=== PATIENT | female | born 1980 | race Caucasian/White ===

== ENCOUNTER 2016-06-10 14:14 | Emergency (ER) | payer OTHER ==
[~2016-06-10 14:14] MED LIST: ACETAMINOPHEN325 MG PO; AUGMENTIN875 MG PO; CLINDAMYCIN HC300 MG PO; CLINDAMYCIN HCL75 MG; EXCEDRIN MIGRAINE; FERROUS SULFAT325 M1 PO; METHADONE HCL10 MG PO; NAPROSYN250 MG PO; PERCOCET1 TA1 PO; SMZ-TMP DS1 TAB PO
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
--- NOTE | 2016-06-10 16:00 | ED MAR SUMMARY ---
..... Medication Administration Record [facility] [address] [place], [place] [id number] Patient: DEDRA BARKER Visit ID: [id number] 36y, F Weight: 81.6 kg Height/Length: 66 in BMI: 29 ALLERGIES: Iodine, Erythromycin
--- NOTE | 2016-06-10 16:00 | ED MED RECONCILIATION SUMMARY ---
Patient: DEDRA BARKER Medication Reconciliation Report [facility] VisitID: [id number] [address] [place] [address] 36y, F Registration Date/Time: 06/10/2016 Weight: 81.6 kg Height/Length: 66 in. BMI: 29.0 ALLERGIES: Erythromycin, Iodine The patient's Home Medications are listed below: THE FOLLOWING MEDICATIONS NEED TO BE RECONCILED: Methadone HCl Oral 125mg, daily, recovering heroin addict The source(s) of the original Home Medication information: patient The following Medications were given to the patient in the Emergency Department: None. The following Medications were prescribed to the patient: Clindamycin 300 mg: take 1 capsule orally every 6 hours for 10 days. No refill. -- Radhika Marrero P.A.-C
--- NOTE | 2016-06-10 16:00 | ED DISCHARGE INSTRUCTIONS ---
Patient: DEDRA BARKER General Instructions [facility] VisitID: [id number] [place] [address] 36y, F Registration Date/Time: 06/10/2016 Facial cellulitis INSTRUCTIONS Drink plenty of fluids. (warm packs to area follow up with pcp in 2 days to ensure improvement if you do not have pcp f/u with [facility] or [facility] Address: [address] [place] [address] ). Prescription Medications: Clindamycin 300 mg: take 1 capsule orally every 6 hours for 10 days. No refill. ADDITIONAL INFORMATION Facial Cellulitis You have an infection of the skin known as cellulitis. This usually starts with a scrape, cut or insect bite which becomes infected. It may also occur from an infected oil gland (pimple) or hair follicle. This can be a serious condition and must be watched closely to be sure the infection is not spreading. With antibiotic treatment, the size of the red area will gradually shrink in size until the skin returns to normal. This will take 7-10 days. The red area should never increase in size once the antibiotic medicine has been started. Occasionally, an infection will be resistant to one antibiotic and another one will have to be used. Home Care: 1) Take all of the antibiotic medicine exactly as prescribed until it is gone. Be careful not to miss any doses, especially during the first few days. 2) A cool compress (face cloth soaked in cool water) applied to the face may help with the swelling and pain. 3) You may use acetaminophen (Tylenol) or ibuprofen (Motrin, Advil) to control pain, unless another medicine was prescribed. [ NOTE : If you have chronic liver or kidney disease or ever had a stomach ulcer or GI bleeding, talk with your doctor before using these medicines.] (Aspirin should never be used in anyone under 18 years of age who is ill with a fever. It may cause severe liver damage.) Follow Up with your doctor or this facility as directed. Check the infected area daily for the warning signs listed below. Get Prompt Medical Attention if any of the following occur: -- Increasing area of redness, swelling or pain -- Pus or fluid drainage from the skin or the eye -- Fever of 100.5 F (38 C) oral or 101.5 F (38.6 C) rectal for more than two days on antibiotics -- Eyelid swells shut -- Increasing headache or neck pain -- Unusual drowsiness or confusion -- Convulsion (seizure) You have been given the following additional information: Cellulitis, Facial (Electronically signed by Radhika Marrero P.A.-C 06/10/2016 15:13)
--- NOTE | 2016-06-10 16:00 | ED MED RECONCILIATION SUMMARY ---
Patient: DEDRA BARKER Medication Reconciliation Report [facility] VisitID: [id number] [address] [place] [address] 36y, F Registration Date/Time: 06/10/2016 Weight: 81.6 kg Height/Length: 66 in. BMI: 29.0 ALLERGIES: Erythromycin, Iodine The patient's Home Medications are listed below: THE FOLLOWING MEDICATIONS NEED TO BE RECONCILED: Methadone HCl Oral 125mg, daily, recovering heroin addict The source(s) of the original Home Medication information: patient The following Medications were given to the patient in the Emergency Department: None. The following Medications were prescribed to the patient: Clindamycin 300 mg: take 1 capsule orally every 6 hours for 10 days. No refill. -- Radhika Marrero P.A.-C
--- NOTE | 2016-06-10 16:00 | ED MAR SUMMARY ---
..... Medication Administration Record [facility] [address], [place] [id number] Patient: DEDRA ABRKER Visit ID: [id number] 36y, F Weight: 81.6 kg Height/Length: 66 in BMI: 29 ALLERGIES: Iodine, Erythromycin
--- NOTE | 2016-06-10 16:00 | ED DISCHARGE INSTRUCTIONS ---
Patient: DEDRA BARKER General Instructions [facility] VisitID: [id number] [place] [address] 36y, F Registration Date/Time: 06/10/2016 Facial cellulitis INSTRUCTIONS Drink plenty of fluids. (warm packs to area follow up with pcp in 2 days to ensure improvement if you do not have pcp f/u with [facility] Address: [address] [place] [address] ). Prescription Medications: Clindamycin 300 mg: take 1 capsule orally every 6 hours for 10 days. No refill. ADDITIONAL INFORMATION Facial Cellulitis You have an infection of the skin known as cellulitis. This usually starts with a scrape, cut or insect bite which becomes infected. It may also occur from an infected oil gland (pimple) or hair follicle. This can be a serious condition and must be watched closely to be sure the infection is not spreading. With antibiotic treatment, the size of the red area will gradually shrink in size until the skin returns to normal. This will take 7-10 days. The red area should never increase in size once the antibiotic medicine has been started. Occasionally, an infection will be resistant to one antibiotic and another one will have to be used. Home Care: 1) Take all of the antibiotic medicine exactly as prescribed until it is gone. Be careful not to miss any doses, especially during the first few days. 2) A cool compress (face cloth soaked in cool water) applied to the face may help with the swelling and pain. 3) You may use acetaminophen (Tylenol) or ibuprofen (Motrin, Advil) to control pain, unless another medicine was prescribed. [ NOTE : If you have chronic liver or kidney disease or ever had a stomach ulcer or GI bleeding, talk with your doctor before using these medicines.] (Aspirin should never be used in anyone under 18 years of age who is ill with a fever. It may cause severe liver damage.) Follow Up with your doctor or this facility as directed. Check the infected area daily for the warning signs listed below. Get Prompt Medical Attention if any of the following occur: -- Increasing area of redness, swelling or pain -- Pus or fluid drainage from the skin or the eye -- Fever of 100.5 F (38 C) oral or 101.5 F (38.6 C) rectal for more than two days on antibiotics -- Eyelid swells shut -- Increasing headache or neck pain -- Unusual drowsiness or confusion -- Convulsion (seizure) You have been given the following additional information: Cellulitis, Facial (Electronically signed by Radhika Marrero P.A.-C 06/10/2016 15:13)
== END 2016-06-10 15:51 | disposition home or self-care (01) ==
LOC: ED SRH 14:14
DX: L03.211 Cellulitis of face (principal); F11.20 Opioid dependence, uncomplicated; Z88.1 Allergy status to other antibiotic agents; Z91.041 Radiographic dye allergy status

== ENCOUNTER 2016-06-21 08:25 | Emergency (ER) | payer OTHER ==
--- NOTE | 2016-06-21 09:04 | ED ORDER SUMMARY ---
..... Patient: DEDRA BARKER OrderSheet [facility] VisitID: [id number] [address] [place] [address] 36y, F Registration Date/Time: 06/21/2016 ORDER SHEET Weight: 81.6 kg Allergies: Erythromycin, Iodine GENERAL ORDERS: MEDICATION ORDERS: Prednisone PO 60 mg (NOW) (08:38 06/21/2016 Weston Sargent) (Ack 8:42 Ana R.N.) (8:46 Shiela R.N.) HydrOXYzine PO 50 mg (NOW) (08:38 06/21/2016 Weston Sargent) (Ack 8:42 Ana R.N.) (8:46 Shiela R.N.) IV FLUIDS: ORDER SHEET NOTES: [Electronically signed by Sherri Owen R.N. (11:03 06/21/2016)] [Electronically signed by Corby Santos Dr. (05:48 06/23/2016)] [Electronically locked/signed by Sherri Owen R.N. (11:03 06/21/2016)]
--- NOTE | 2016-06-21 09:04 | ED NURSING NOTES ---
Clinical Report - Nurses [facility] [address] [place] [address] 06/21/2016 8:24 [id number] Triage time 08:28. Acuity: LEVEL 4. Chief Complaint: (facial swelling, red bumps on forehead, itchiness). 08:39 06/21/16. Alert. No acute distress. SEPSIS SCREEN: Sepsis Screen. Negative (no infection suspected/documented). ERICK COMA SCORE: Erick Coma Scale: 15- eyes open spontaneously (4); best verbal response- oriented x 4 (5); best motor response- obeys commands (6). --08:39 Sherri Owen R.N. 08:31 06/21/16. BP: 137/78. HR: 79. RR: 16. O2 saturation: 99%. Temp: 98.4 F. Pain level now: 08/18. --08:39 Sherri Owen R.N. Weight: 81.6 kg. Height/Length: 66 inches Per Patient. BMI: 29. --08:39 Sherri Owen R.N. Medications Methadone HCl Oral 125mg, daily (recovering heroin addict). --08:37 Sherri Owen R.N. Allergies Erythromycin. Iodine. --08:37 Sherri Owen R.N. History Historian: patient. This started last night. ( Patient reports that she went to the salon to dye her hair two days ago. Last night, she noticed redness and swelling near her hairline. She reports that she just finished antibiotics for cellulitis on her face yesterday. She reports the cellulitis healed appropriately.). 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 PAST MEDICAL HX: Immunizations: up-to-date. Last normal menstrual period- "a couple months ago". Denies current . SOCIAL HX: Never smoker. No alcohol use or drug use. FALL RISK ASSESSMENT: Fall risk assessment completed. No fall risk identified. NUTRITIONAL RISK ASSESSMENT: The nutritional risk assessment revealed no deficiencies. FUNCTIONAL ASSESSMENT: Functional assessment: no impairments noted. LEARNING NEEDS ASSESSMENT: The learning needs assessment revealed no barriers. SKIN INTEGRITY ASSESSMENT: Skin integrity risk assessment completed. No skin integrity risk identified. --08:39 Sherri Owen R.N. PROBLEMS: Substance Abuse. Abscess. Gastroenteritis. Hepatitis. Facial Cellulitis. Lifestyle / Substance Problems. --08:38 Sherri Owen R.N. ADDITIONAL SURGERIES: Facial abscess surgery. Knee Surgery. --08:38 Sherri Owen R.N. Interventions ID band on patient. To treatment room. --08:39 Sherri Owen R.N. PHYSICAL ASSESSMENT 08:41 06/21/16. Ambulatory to room. GENERAL / NEURO / PSYCH: Alert. Oriented X 4. Appears in no acute distress. HEENT: ( facial swelling in R rastafarian area). Mucous membranes are pink. RESPIRATORY: Respirations not labored. Chest nontender. CVS: Capillary refill less than 2 seconds. Pulses within normal limits. SKIN: Skin is warm and dry. Erythematous, petechial skin rash (at hair line and throughout scalp). Normal skin turgor. --08:41 Sherri Owen R.N. NURSING PROGRESS NOTES 08:41 06/21/2016 Prednisone PO Tablets 60 mg given. Allergies verified and confirmed 5 rights. --08:46 Sherri Owen R.N. 08:41 06/21/2016 Hydroxyzine (HydrOXYzine HCl) PO Tablets 50 mg given. Allergies verified, confirmed 5 rights and sedative warning given to the patient and patient's family. --08:46 Sherri Owen R.N. 08:41 06/21/16. Patient gowned. Two patient identifiers checked. Call light placed in reach. Side rails up x 1. Bed placed in lowest position. Brakes of bed on. --08:41 Sherri Owen R.N. DISPOSITION / DISCHARGE No learning barriers present. Discharge instructions provided and reviewed with the patient and family. Reviewed warnings. Reviewed medication(s). Treatments reviewed. Patient and family verbalized understanding. Written instructions provided in Cameroonian. The patient was discharged by the physician. She was discharged home and accompanied by family. She left the Emergency Department ambulatory and via private vehicle. Family member driving. --09:11 Sherri Owen R.N. 08:31 06/21/16. BP: 137/78. HR: 79. RR: 16. O2 saturation: 99%. Temp: 98.4 F. Pain level now: 08/18. --09:11 Sherri Owen R.N. Locked/Released at 06/21/2016 11:03 by Sherri Owen R.N.
--- NOTE | 2016-06-21 09:04 | ED CLINICAL REPORT ---
Clinical Report - Physicians/Mid Levels [facility] [address] [place] [address] 06/21/2016 8:24 Patient: DEDRA BARKER Time Seen: 0831; initial patient contact. Arrived- By private vehicle. Historian- patient. HISTORY OF PRESENT ILLNESS Chief Complaint: ALLERGIC REACTION. The patient has had a skin rash and swelling. This started past few days and is still present (unchanged). It was abrupt in onset and has been constant but is not gone now. A cause has been identified (new hair dye). No recent insect bite or food exposure. Was not recently exposed to poison param. The patient received treatment prior to arrival (patient has tried to wash out the dye several times). (no shortness of breath or swelling of the throat. appears to be isolated to the scalp area.). Similar symptoms previously: None. Recent medical care: Not recently seen/assessed. REVIEW OF SYSTEMS No sore throat, fever, chest pain, abdominal pain or vomiting. All systems otherwise negative, except as recorded above. PAST HISTORY See nurses notes. Medications: Methadone HCl Oral 125mg, daily (recovering heroin addict). Allergies: Erythromycin. Iodine. SOCIAL HISTORY Never smoker. No alcohol use or drug use. No recent travel. Is a local resident. ADDITIONAL NOTES The nursing notes have been reviewed. PHYSICAL EXAM Vital Signs: 06/21/2016 08:31 BP: 137/78. HR: 79. RR: 16. O2 saturation: 99%. Temp: 98.4 F. Pain level now: 7/10. Oxygen saturation normal. Appearance: Alert. Oriented X3. No acute distress. Eyes: Pupils equal, round and reactive to light. (swelling to the head and scalp with mild hyperemia isolated to the scalp area. no crepitus. no michael abnormalities. no fluctuance or area of induration. no masses.). ENT: Ears normal. Nose normal. Pharynx normal. Voice normal. No muffled or hoarse voice or drooling. Neck: Neck supple. No lymphadenopathy or meningeal signs. (no stridor.). CVS: Normal heart rate and rhythm. Heart sounds normal. Respiratory: No respiratory distress. No respiratory distress. Breath sounds normal. No wheezes, rales or rhonchi. Abdomen: Nontender. No organomegaly. Extremities: Normal external inspection. Extremities nontender. Neuro: Oriented X 3. No motor deficit. No sensory deficit. PROGRESS AND PROCEDURES Course of Care: The patient is a pleasant 36 -year-old female presented for evaluation of allergic reaction. Appears to be a reaction to the hair dye. no signs of airway compromise. Symptoms have been ongoing for the past few days. Symptoms will be treated here in the emergency department with allergy medication. Because of the amount of swelling located to the scalp, feel the benefits of systemic steroid treatment outweighs the risks. Discussed the patient these medications and possible side effects. Patient is agreeable to the treatment and plan. Patient was monitored here in the emergency department. No further worsening of her symptoms. Patient states feeling slightly improved. Because of the several day history of the allergic-type reaction, do not feel patient will have any significant worsening. Patient was given the option of further monitoring the emergency department versus home care. Patient states that she lives nearby and will return immediately for any worsening. Patient requesting to pursue further treatment as an outpatient. At this time, again because of the time course of the illness, feel that this is a reasonable option. Patient will be discharged and instructed to follow-up with her physician. Discussed with patient anaphylaxis and reasons to return to the emergency department. Educated patient on allergen avoidance. Discussed the patient workup here in emergency department including diagnosis, home care, follow-up, and return precautions. All questions have been answered. The patient expressed understanding of these instructions and was agreeable to them. Disposition: Discharged. Condition: good. CLINICAL IMPRESSION 06/21/2016 08:31 BP: 137/78. HR: 79. RR: 16. O2 saturation: 99%. Temp: 98.4 F. Pain level now: 7/10. Blood pressure normal. Oxygen saturation normal. Severe allergic contact dermatitis from cosmetics (acute of scalp). INSTRUCTIONS (avoid use of the hair care product you were recently exposed to.). Warnings: GENERAL WARNINGS: Return or contact your physician immediately if your condition worsens or changes unexpectedly, if not improving as expected, or if other problems arise. Specifically return if pain, vomiting, bleeding, breathing difficulty or fever. weakness, light headed, swelling of the throat, or other concerns. Your Current Medications: CONTINUE TAKING THE FOLLOWING MEDICATIONS: Methadone HCl Oral : 125mg daily, recovering heroin addict. Prescription Medications: Atarax 50 mg: take 1 orally every 8 hours as needed for itching. Dispense thirty (30). No refill. Substitution is permissible. Prednisone every day for 5 days. Dispense sufficient quantity. No refills. (60 mg PO) [place] 5 mg / 325 mg tablets: take 1 orally every 6 hours as needed for pain. Dispense ten (10). No refill. Substitution is permissible. Follow-up: Return to the emergency department as needed. Follow up with your doctor in three days. Reason for referral: recheck today's concerns. Summary of care provided to patient via paper. Screening today revealed the patient's blood pressure to be in the normal range. The patient should follow up with a primary care provider for blood pressure management. Understanding of the discharge instructions verbalized by patient. (Electronically signed by Corby Santos Dr. 06/23/2016 5:48)
--- NOTE | 2016-06-21 09:04 | ED NURSING NOTES ---
Clinical Report - Nurses [facility] [address] [place] [address] 06/21/2016 8:24 [id number] TRI[facility] Triage time 08:28. Acuity: LEVEL 4. Chief Complaint: (facial swelling, red bumps on forehead, itchiness). 08:39 06/21/16. Alert. No acute distress. SEPSIS SCREEN: Sepsis Screen. Negative (no infection suspected/documented). ERICK COMA SCORE: Erick Coma Scale: 15- eyes open spontaneously (4); best verbal response- oriented x 4 (5); best motor response- obeys commands (6). --08:39 Sherri Owen R.N. 08:31 06/21/16. BP: 137/78. HR: 79. RR: 16. O2 saturation: 99%. Temp: 98.4 F. Pain level now: 08/18. --08:39 Sherri Owen R.N. Weight: 81.6 kg. Height/Length: 66 inches Per Patient. BMI: 29. --08:39 Sherri Owen R.N. Medications Methadone HCl Oral 125mg, daily (recovering heroin addict). --08:37 Sherri Owen R.N. Allergies Erythromycin. Iodine. --08:37 Sherri Owen R.N. History Historian: patient. This started last night. ( Patient reports that she went to the salon to dye her hair two days ago. Last night, she noticed redness and swelling near her hairline. She reports that she just finished antibiotics for cellulitis on her face yesterday. She reports the cellulitis healed appropriately.). 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 PAST MEDICAL HX: Immunizations: up-to-date. Last normal menstrual period- "a couple months ago". Denies current . SOCIAL HX: Never smoker. No alcohol use or drug use. FALL RISK ASSESSMENT: Fall risk assessment completed. No fall risk identified. NUTRITIONAL RISK ASSESSMENT: The nutritional risk assessment revealed no deficiencies. FUNCTIONAL ASSESSMENT: Functional assessment: no impairments noted. LEARNING NEEDS ASSESSMENT: The learning needs assessment revealed no barriers. SKIN INTEGRITY ASSESSMENT: Skin integrity risk assessment completed. No skin integrity risk identified. --08:39 Sherri Owen R.N. PROBLEMS: Substance Abuse. Abscess. Gastroenteritis. Hepatitis. Facial Cellulitis. Lifestyle / Substance Problems. --08:38 Sherri Owen R.N. ADDITIONAL SURGERIES: Facial abscess surgery. Knee Surgery. --08:38 Sherri Owen R.N. Interventions ID band on patient. To treatment room. --08:39 Sherri Owen R.N. PHYSICAL ASSESSMENT 08:41 06/21/16. Ambulatory to room. GENERAL / NEURO / PSYCH: Alert. Oriented X 4. Appears in no acute distress. HEENT: ( facial swelling in R denominational area). Mucous membranes are pink. RESPIRATORY: Respirations not labored. Chest nontender. CVS: Capillary refill less than 2 seconds. Pulses within normal limits. SKIN: Skin is warm and dry. Erythematous, petechial skin rash (at hair line and throughout scalp). Normal skin turgor. --08:41 Sherri Owen R.N. NURSING PROGRESS NOTES 08:41 06/21/2016 Prednisone PO Tablets 60 mg given. Allergies verified and confirmed 5 rights. --08:46 Sherri Owen R.N. 08:41 06/21/2016 Hydroxyzine (HydrOXYzine HCl) PO Tablets 50 mg given. Allergies verified, confirmed 5 rights and sedative warning given to the patient and patient's family. --08:46 Sherri Owen R.N. 08:41 06/21/16. Patient gowned. Two patient identifiers checked. Call light placed in reach. Side rails up x 1. Bed placed in lowest position. Brakes of bed on. --08:41 Sherri Owen R.N. DISPOSITION / DISCHARGE No learning barriers present. Discharge instructions provided and reviewed with the patient and family. Reviewed warnings. Reviewed medication(s). Treatments reviewed. Patient and family verbalized understanding. Written instructions provided in Georgian. The patient was discharged by the physician. She was discharged home and accompanied by family. She left the Emergency Department ambulatory and via private vehicle. Family member driving. --09:11 Sherri Owen R.N. 08:31 06/21/16. BP: 137/78. HR: 79. RR: 16. O2 saturation: 99%. Temp: 98.4 F. Pain level now: 08/18. --09:11 Sherri Owen R.N. Locked/Released at 06/21/2016 11:03 by Sherri Owen R.N.
--- NOTE | 2016-06-21 09:04 | ED ORDER SUMMARY ---
..... Patient: DEDRA BARKER OrderSheet [facility] VisitID: [id number] [address] [place] [address] 36y, F Registration Date/Time: 06/21/2016 ORDER SHEET Weight: 81.6 kg Allergies: Erythromycin, Iodine GENERAL ORDERS: MEDICATION ORDERS: Prednisone PO 60 mg (NOW) (08:38 06/21/2016 Weston Sargent) (Ack 8:42 Ana R.N.) (8:46 Shiela R.N.) HydrOXYzine PO 50 mg (NOW) (08:38 06/21/2016 Weston Sargent) (Ack 8:42 Ana R.N.) (8:46 Shiela R.N.) IV FLUIDS: ORDER SHEET NOTES: [Electronically signed by Sherri Owen R.N. (11:03 06/21/2016)] [Electronically signed by Corby Santos Dr. (05:48 06/23/2016)] [Electronically locked/signed by Sherri Owen R.N. (11:03 06/21/2016)]
--- NOTE | 2016-06-23 05:48 | ED DISCHARGE INSTRUCTIONS ---
Patient: DEDRA BARKER General Instructions [facility] VisitID: [id number] [place] [address] 36y, F Registration Date/Time: 06/21/2016 06/21/2016 08:31 BP: 137/78. HR: 79. RR: 16. O2 saturation: 99%. Temp: 98.4 F. Pain level now: 7/10. Blood pressure normal. Oxygen saturation normal. Severe allergic contact dermatitis from cosmetics (acute of scalp). INSTRUCTIONS (avoid use of the hair care product you were recently exposed to.). Warnings: GENERAL WARNINGS: Return or contact your physician immediately if your condition worsens or changes unexpectedly, if not improving as expected, or if other problems arise. Specifically return if pain, vomiting, bleeding, breathing difficulty or fever. weakness, light headed, swelling of the throat, or other concerns. Your Current Medications: CONTINUE TAKING THE FOLLOWING MEDICATIONS: Methadone HCl Oral : 125mg daily, recovering heroin addict. Prescription Medications: Atarax 50 mg: take 1 orally every 8 hours as needed for itching. Dispense thirty (30). No refill. Substitution is permissible. Prednisone every day for 5 days. Dispense sufficient quantity. No refills. (60 mg PO) [place] 5 mg / 325 mg tablets: take 1 orally every 6 hours as needed for pain. Dispense ten (10). No refill. Substitution is permissible. Follow-up: Return to the emergency department as needed. Follow up with your doctor in three days. Reason for referral: recheck today's concerns. Summary of care provided to patient via paper. Screening today revealed the patient's blood pressure to be in the normal range. The patient should follow up with a primary care provider for blood pressure management. Understanding of the discharge instructions verbalized by patient. ADDITIONAL INFORMATION Dermatitis (Non-Specific) Dermatitis is an inflammation of the skin. The exact cause of your rash is not certain. However, this rash does not appear to be an infection or contagious illness. Taking care of the rash at home should help relieve your symptoms. Home Care: Keep the areas of rash clean by washing it daily. This also helps to keep the skin moist. Use a neutral pH soap such as Dove or Lever 2000. Apply a moisturizing lotion after bathing to prevent dry skin. Avoid skin irritants (wool or silk clothing, grease, oils, some medicines, harsh soaps, and detergents). Wear absorbent, soft fabrics next to the skin rather than rough or scratchy materials. Unless another medicine was prescribed, you may use Hydrocortisone cream (which you can get without a prescription) to reduce the inflammation. Follow Up: Make an appointment with your doctor in the next 1 to 2 weeks if your symptoms do not improve with the above measures. Get Prompt Medical Attention if any of the following occur: Increasing area of redness or pain in the skin Yellow crusts or drainage from the rash Joint pain New rash that appears in other areas of the body Fever of 100.4F (38C) or higher, or as directed by your healthcare provider Hydroxyzine Pamoate Oral capsule What is this medicine? HYDROXYZINE (tiana DROX i zeen) is an antihistamine. This medicine is used to treat allergy symptoms. It is also used to treat anxiety and tension. This medicine can be used with other medicines to induce sleep before surgery. How should I use this medicine? Take this medicine by mouth with a full glass of water. Follow the directions on the prescription label. You may take this medicine with food or on an empty stomach. Take your medicine at regular intervals. Do not take your medicine more often than directed. Talk to your overhead line worker regarding the use of this medicine in children. Special care may be needed. While this drug may be prescribed for children as young as 6 years of age for selected conditions, precautions do apply. Patients over 65 years old may have a stronger reaction and need a smaller dose. What side effects may I notice from receiving this medicine? Side effects that you should report to your doctor or health medicare contact specialist as soon as possible: fast or irregular heartbeat difficulty passing urine seizures slurred speech or confusion tremor Side effects that usually do not require medical attention (report to your doctor or health medicare contact specialist if they continue or are bothersome): constipation drowsiness fatigue headache stomach upset What may interact with this medicine? alcohol barbiturate medicines for sleep or seizures medicines for colds, allergies medicines for depression, anxiety, or emotional disturbances medicines for pain medicines for sleep muscle relaxants What if I miss a dose? If you miss a dose, take it as soon as you can. If it is almost time for your next dose, take only that dose. Do not take double or extra doses. Where should I keep my medicine? Keep out of the reach of children. Store at room temperature between 15 and 30 degrees C (59 and 86 degrees F). Keep container tightly closed. Throw away any unused medicine after the expiration date. What should I tell my health care provider before I take this medicine? They need to know if you have any of these conditions: any chronic illness difficulty passing urine glaucoma heart disease kidney disease liver disease lung disease an unusual or allergic reaction to hydroxyzine, cetirizine, other medicines, foods, dyes, or preservatives or trying to get breast-feeding What should I watch for while using this medicine? Tell your doctor or health medicare contact specialist if your symptoms do not improve. You may get drowsy or dizzy. Do not drive, use machinery, or do anything that needs mental alertness until you know how this medicine affects you. Do not stand or sit up quickly, especially if you are an older patient. This reduces the risk of dizzy or fainting spells. Alcohol may interfere with the effect of this medicine. Avoid alcoholic drinks. Your mouth may get dry. Chewing sugarless gum or sucking hard candy, and drinking plenty of water may help. Contact your doctor if the problem does not go away or is severe. This medicine may cause dry eyes and blurred vision. If you wear contact lenses you may feel some discomfort. Lubricating drops may help. See your eye doctor if the problem does not go away or is severe. If you are receiving skin tests for allergies, tell your doctor you are using this medicine. Prednisone Oral tablet What is this medicine? PREDNISONE (PRED ni sone) is a corticosteroid. It is commonly used to treat inflammation of the skin, joints, lungs, and other organs. Common conditions treated include asthma, allergies, and arthritis. It is also used for other conditions, such as blood disorders and diseases of the adrenal glands. How should I use this medicine? Take this medicine by mouth with a glass of water. Follow the directions on the prescription label. Take this medicine with food. If you are taking this medicine once a day, take it in the morning. Do not take more medicine than you are told to take. Do not suddenly stop taking your medicine because you may develop a severe reaction. Your doctor will tell you how much medicine to take. If your doctor wants you to stop the medicine, the dose may be slowly lowered over time to avoid any side effects. Talk to your overhead line worker regarding the use of this medicine in children. Special care may be needed. What side effects may I notice from receiving this medicine? Side effects that you should report to your doctor or health medicare contact specialist as soon as possible: allergic reactions like skin rash, itching or hives, swelling of the face, lips, or tongue changes in emotions or moods changes in vision depressed mood eye pain fever or chills, cough, sore throat, pain or difficulty passing urine increased thirst swelling of ankles, feet Side effects that usually do not require medical attention (report to your doctor or health medicare contact specialist if they continue or are bothersome): confusion, excitement, restlessness headache nausea, vomiting skin problems, acne, thin and shiny skin trouble sleeping weight gain What may interact with this medicine? Do not take this medicine with any of the following medications: metyrapone mifepristone This medicine may also interact with the following medications: aminoglutethimide amphotericin B aspirin and aspirin-like medicines barbiturates certain medicines for diabetes, like glipizide or glyburide cholestyramine cholinesterase inhibitors cyclosporine digoxin diuretics ephedrine female hormones, like estrogens and control pills isoniazid ketoconazole NSAIDS, medicines for pain and inflammation, like ibuprofen or naproxen phenytoin rifampin toxoids vaccines warfarin What if I miss a dose? If you miss a dose, take it as soon as you can. If it is almost time for your next dose, talk to your doctor or health medicare contact specialist. You may need to miss a dose or take an extra dose. Do not take double or extra doses without advice. Where should I keep my medicine? Keep out of the reach of children. Store at room temperature between 15 and 30 degrees C (59 and 86 degrees F). Protect from light. Keep container tightly closed. Throw away any unused medicine after the expiration date. What should I tell my health care provider before I take this medicine? They need to know if you have any of these conditions: Jose's syndrome diabetes glaucoma heart disease high blood pressure infection (especially a virus infection such as chickenpox, cold sores, or herpes) kidney disease liver disease mental illness myasthenia gravis osteoporosis seizures stomach or intestine problems thyroid disease an unusual or allergic reaction to lactose, prednisone, other medicines, foods, dyes, or preservatives or trying to get breast-feeding What should I watch for while using this medicine? Visit your doctor or health medicare contact specialist for regular checks on your progress. If you are taking this medicine over a prolonged period, carry an identification card with your name and address, the type and dose of your medicine, and your doctor's name and address. This medicine may increase your risk of getting an infection. Tell your doctor or health medicare contact specialist if you are around anyone with measles or chickenpox, or if you develop sores or blisters that do not heal properly. If you are going to have surgery, tell your doctor or health medicare contact specialist that you have taken this medicine within the last twelve months. Ask your doctor or health medicare contact specialist about your diet. You may need to lower the amount of salt you eat. This medicine may affect blood sugar levels. If you have diabetes, check with your doctor or health medicare contact specialist before you change your diet or the dose of your diabetic medicine. Hydrocodone Bitartrate, Acetaminophen Oral tablet What is this medicine? ACETAMINOPHEN; HYDROCODONE (a set a FAWN justin fen; tiana droe KOE done) is a pain reliever. It is used to treat mild to moderate pain. How should I use this medicine? Take this medicine by mouth. Swallow it with a full glass of water. Follow the directions on the prescription label. If the medicine upsets your stomach, take the medicine with food or milk. Do not take more than you are told to take. Talk to your overhead line worker regarding the use of this medicine in children. This medicine is not approved for use in children. What side effects may I notice from receiving this medicine? Side effects that you should report to your doctor or health medicare contact specialist as soon as possible: allergic reactions like skin rash, itching or hives, swelling of the face, lips, or tongue breathing problems confusion feeling faint or lightheaded, falls stomach pain yellowing of the eyes or skin Side effects that usually do not require medical attention (report to your doctor or health medicare contact specialist if they continue or are bothersome): nausea, vomiting stomach upset What may interact with this medicine? alcohol antihistamines isoniazid medicines for depression, anxiety, or psychotic disturbances medicines for sleep muscle relaxants naltrexone narcotic medicines (opiates) for pain phenobarbital ritonavir tramadol What if I miss a dose? If you miss a dose, take it as soon as you can. If it is almost time for your next dose, take only that dose. Do not take double or extra doses. Where should I keep my medicine? Keep out of the reach of children. This medicine can be abused. Keep your medicine in a safe place to protect it from theft. Do not share this medicine with anyone. Selling or giving away this medicine is dangerous and against the law. Store at room temperature between 15 and 30 degrees C (59 and 86 degrees F). Protect from light. Keep container tightly closed. Throw away any unused medicine after the expiration date. Discard unused medicine and used packaging carefully. Pets and children can be harmed if they find used or lost packages. What should I tell my health care provider before I take this medicine? They need to know if you have any of these conditions: brain tumor Crohn's disease, inflammatory bowel disease, or ulcerative colitis drink more than 3 alcohol-containing drinks per day drug abuse or addiction head injury heart or circulation problems kidney disease or problems going to the bathroom liver disease lung disease, asthma, or breathing problems an unusual or allergic reaction to acetaminophen, hydrocodone, other opioid analgesics, other medicines, foods, dyes, or preservatives or trying to get breast-feeding What should I watch for while using this medicine? Tell your doctor or health medicare contact specialist if your pain does not go away, if it gets worse, or if you have new or a different type of pain. You may develop tolerance to the medicine. Tolerance means that you will need a higher dose of the medicine for pain relief. Tolerance is normal and is expected if you take the medicine for a long time. Do not suddenly stop taking your medicine because you may develop a severe reaction. Your body becomes used to the medicine. This does NOT mean you are addicted. Addiction is a behavior related to getting and using a drug for a non-medical reason. If you have pain, you have a medical reason to take pain medicine. Your doctor will tell you how much medicine to take. If your doctor wants you to stop the medicine, the dose will be slowly lowered over time to avoid any side effects. You may get drowsy or dizzy when you first start taking the medicine or change doses. Do not drive, use machinery, or do anything that may be dangerous until you know how the medicine affects you. Stand or sit up slowly. There are different types of narcotic medicines (opiates) for pain. If you take more than one type at the same time, you may have more side effects. Give your health care provider a list of all medicines you use. Your doctor will tell you how much medicine to take. Do not take more medicine than directed. Call emergency for help if you have problems breathing. The medicine will cause constipation. Try to have a bowel movement at least every 2 to 3 days. If you do not have a bowel movement for 3 days, call your doctor or health medicare contact specialist. Too much acetaminophen can be very dangerous. Do not take Tylenol (acetaminophen) or medicines that contain acetaminophen with this medicine. Many non-prescription medicines contain acetaminophen. Always read the labels carefully. You have been given the following additional information: Dermatitis, Non-Specific Hydroxyzine Pamoate Oral capsule Prednisone Oral tablet Hydrocodone Bitartrate, Acetaminophen Oral tablet (Electronically signed by Corby Santos Dr. 06/23/2016 5:48)
--- NOTE | 2016-06-23 05:48 | ED DISCHARGE INSTRUCTIONS ---
Patient: DEDRA BARKER General Instructions [facility] VisitID: [id number] [place] [address] 36y, F Registration Date/Time: 06/21/2016 06/21/2016 08:31 BP: 137/78. HR: 79. RR: 16. O2 saturation: 99%. Temp: 98.4 F. Pain level now: 7/10. Blood pressure normal. Oxygen saturation normal. Severe allergic contact dermatitis from cosmetics (acute of scalp). INSTRUCTIONS (avoid use of the hair care product you were recently exposed to.). Warnings: GENERAL WARNINGS: Return or contact your physician immediately if your condition worsens or changes unexpectedly, if not improving as expected, or if other problems arise. Specifically return if pain, vomiting, bleeding, breathing difficulty or fever. weakness, light headed, swelling of the throat, or other concerns. Your Current Medications: CONTINUE TAKING THE FOLLOWING MEDICATIONS: Methadone HCl Oral : 125mg daily, recovering heroin addict. Prescription Medications: Atarax 50 mg: take 1 orally every 8 hours as needed for itching. Dispense thirty (30). No refill. Substitution is permissible. Prednisone every day for 5 days. Dispense sufficient quantity. No refills. (60 mg PO) [place] 5 mg / 325 mg tablets: take 1 orally every 6 hours as needed for pain. Dispense ten (10). No refill. Substitution is permissible. Follow-up: Return to the emergency department as needed. Follow up with your doctor in three days. Reason for referral: recheck today's concerns. Summary of care provided to patient via paper. Screening today revealed the patient's blood pressure to be in the normal range. The patient should follow up with a primary care provider for blood pressure management. Understanding of the discharge instructions verbalized by patient. ADDITIONAL INFORMATION Dermatitis (Non-Specific) Dermatitis is an inflammation of the skin. The exact cause of your rash is not certain. However, this rash does not appear to be an infection or contagious illness. Taking care of the rash at home should help relieve your symptoms. Home Care: Keep the areas of rash clean by washing it daily. This also helps to keep the skin moist. Use a neutral pH soap such as Dove or Lever 2000. Apply a moisturizing lotion after bathing to prevent dry skin. Avoid skin irritants (wool or silk clothing, grease, oils, some medicines, harsh soaps, and detergents). Wear absorbent, soft fabrics next to the skin rather than rough or scratchy materials. Unless another medicine was prescribed, you may use Hydrocortisone cream (which you can get without a prescription) to reduce the inflammation. Follow Up: Make an appointment with your doctor in the next 1 to 2 weeks if your symptoms do not improve with the above measures. Get Prompt Medical Attention if any of the following occur: Increasing area of redness or pain in the skin Yellow crusts or drainage from the rash Joint pain New rash that appears in other areas of the body Fever of 100.4F (38C) or higher, or as directed by your healthcare provider Hydroxyzine Pamoate Oral capsule What is this medicine? HYDROXYZINE (tiana DROX i zeen) is an antihistamine. This medicine is used to treat allergy symptoms. It is also used to treat anxiety and tension. This medicine can be used with other medicines to induce sleep before surgery. How should I use this medicine? Take this medicine by mouth with a full glass of water. Follow the directions on the prescription label. You may take this medicine with food or on an empty stomach. Take your medicine at regular intervals. Do not take your medicine more often than directed. Talk to your frontend engineer regarding the use of this medicine in children. Special care may be needed. While this drug may be prescribed for children as young as 6 years of age for selected conditions, precautions do apply. Patients over 65 years old may have a stronger reaction and need a smaller dose. What side effects may I notice from receiving this medicine? Side effects that you should report to your doctor or health prompt care rn as soon as possible: fast or irregular heartbeat difficulty passing urine seizures slurred speech or confusion tremor Side effects that usually do not require medical attention (report to your doctor or health prompt care rn if they continue or are bothersome): constipation drowsiness fatigue headache stomach upset What may interact with this medicine? alcohol barbiturate medicines for sleep or seizures medicines for colds, allergies medicines for depression, anxiety, or emotional disturbances medicines for pain medicines for sleep muscle relaxants What if I miss a dose? If you miss a dose, take it as soon as you can. If it is almost time for your next dose, take only that dose. Do not take double or extra doses. Where should I keep my medicine? Keep out of the reach of children. Store at room temperature between 15 and 30 degrees C (59 and 86 degrees F). Keep container tightly closed. Throw away any unused medicine after the expiration date. What should I tell my health care provider before I take this medicine? They need to know if you have any of these conditions: any chronic illness difficulty passing urine glaucoma heart disease kidney disease liver disease lung disease an unusual or allergic reaction to hydroxyzine, cetirizine, other medicines, foods, dyes, or preservatives or trying to get breast-feeding What should I watch for while using this medicine? Tell your doctor or health prompt care rn if your symptoms do not improve. You may get drowsy or dizzy. Do not drive, use machinery, or do anything that needs mental alertness until you know how this medicine affects you. Do not stand or sit up quickly, especially if you are an older patient. This reduces the risk of dizzy or fainting spells. Alcohol may interfere with the effect of this medicine. Avoid alcoholic drinks. Your mouth may get dry. Chewing sugarless gum or sucking hard candy, and drinking plenty of water may help. Contact your doctor if the problem does not go away or is severe. This medicine may cause dry eyes and blurred vision. If you wear contact lenses you may feel some discomfort. Lubricating drops may help. See your eye doctor if the problem does not go away or is severe. If you are receiving skin tests for allergies, tell your doctor you are using this medicine. Prednisone Oral tablet What is this medicine? PREDNISONE (PRED ni sone) is a corticosteroid. It is commonly used to treat inflammation of the skin, joints, lungs, and other organs. Common conditions treated include asthma, allergies, and arthritis. It is also used for other conditions, such as blood disorders and diseases of the adrenal glands. How should I use this medicine? Take this medicine by mouth with a glass of water. Follow the directions on the prescription label. Take this medicine with food. If you are taking this medicine once a day, take it in the morning. Do not take more medicine than you are told to take. Do not suddenly stop taking your medicine because you may develop a severe reaction. Your doctor will tell you how much medicine to take. If your doctor wants you to stop the medicine, the dose may be slowly lowered over time to avoid any side effects. Talk to your frontend engineer regarding the use of this medicine in children. Special care may be needed. What side effects may I notice from receiving this medicine? Side effects that you should report to your doctor or health prompt care rn as soon as possible: allergic reactions like skin rash, itching or hives, swelling of the face, lips, or tongue changes in emotions or moods changes in vision depressed mood eye pain fever or chills, cough, sore throat, pain or difficulty passing urine increased thirst swelling of ankles, feet Side effects that usually do not require medical attention (report to your doctor or health prompt care rn if they continue or are bothersome): confusion, excitement, restlessness headache nausea, vomiting skin problems, acne, thin and shiny skin trouble sleeping weight gain What may interact with this medicine? Do not take this medicine with any of the following medications: metyrapone mifepristone This medicine may also interact with the following medications: aminoglutethimide amphotericin B aspirin and aspirin-like medicines barbiturates certain medicines for diabetes, like glipizide or glyburide cholestyramine cholinesterase inhibitors cyclosporine digoxin diuretics ephedrine female hormones, like estrogens and control pills isoniazid ketoconazole NSAIDS, medicines for pain and inflammation, like ibuprofen or naproxen phenytoin rifampin toxoids vaccines warfarin What if I miss a dose? If you miss a dose, take it as soon as you can. If it is almost time for your next dose, talk to your doctor or health prompt care rn. You may need to miss a dose or take an extra dose. Do not take double or extra doses without advice. Where should I keep my medicine? Keep out of the reach of children. Store at room temperature between 15 and 30 degrees C (59 and 86 degrees F). Protect from light. Keep container tightly closed. Throw away any unused medicine after the expiration date. What should I tell my health care provider before I take this medicine? They need to know if you have any of these conditions: Jose's syndrome diabetes glaucoma heart disease high blood pressure infection (especially a virus infection such as chickenpox, cold sores, or herpes) kidney disease liver disease mental illness myasthenia gravis osteoporosis seizures stomach or intestine problems thyroid disease an unusual or allergic reaction to lactose, prednisone, other medicines, foods, dyes, or preservatives or trying to get breast-feeding What should I watch for while using this medicine? Visit your doctor or health prompt care rn for regular checks on your progress. If you are taking this medicine over a prolonged period, carry an identification card with your name and address, the type and dose of your medicine, and your doctor's name and address. This medicine may increase your risk of getting an infection. Tell your doctor or health prompt care rn if you are around anyone with measles or chickenpox, or if you develop sores or blisters that do not heal properly. If you are going to have surgery, tell your doctor or health prompt care rn that you have taken this medicine within the last twelve months. Ask your doctor or health prompt care rn about your diet. You may need to lower the amount of salt you eat. This medicine may affect blood sugar levels. If you have diabetes, check with your doctor or health prompt care rn before you change your diet or the dose of your diabetic medicine. Hydrocodone Bitartrate, Acetaminophen Oral tablet What is this medicine? ACETAMINOPHEN; HYDROCODONE (a set a FAWN justin fen; tiana droe KOE done) is a pain reliever. It is used to treat mild to moderate pain. How should I use this medicine? Take this medicine by mouth. Swallow it with a full glass of water. Follow the directions on the prescription label. If the medicine upsets your stomach, take the medicine with food or milk. Do not take more than you are told to take. Talk to your frontend engineer regarding the use of this medicine in children. This medicine is not approved for use in children. What side effects may I notice from receiving this medicine? Side effects that you should report to your doctor or health prompt care rn as soon as possible: allergic reactions like skin rash, itching or hives, swelling of the face, lips, or tongue breathing problems confusion feeling faint or lightheaded, falls stomach pain yellowing of the eyes or skin Side effects that usually do not require medical attention (report to your doctor or health prompt care rn if they continue or are bothersome): nausea, vomiting stomach upset What may interact with this medicine? alcohol antihistamines isoniazid medicines for depression, anxiety, or psychotic disturbances medicines for sleep muscle relaxants naltrexone narcotic medicines (opiates) for pain phenobarbital ritonavir tramadol What if I miss a dose? If you miss a dose, take it as soon as you can. If it is almost time for your next dose, take only that dose. Do not take double or extra doses. Where should I keep my medicine? Keep out of the reach of children. This medicine can be abused. Keep your medicine in a safe place to protect it from theft. Do not share this medicine with anyone. Selling or giving away this medicine is dangerous and against the law. Store at room temperature between 15 and 30 degrees C (59 and 86 degrees F). Protect from light. Keep container tightly closed. Throw away any unused medicine after the expiration date. Discard unused medicine and used packaging carefully. Pets and children can be harmed if they find used or lost packages. What should I tell my health care provider before I take this medicine? They need to know if you have any of these conditions: brain tumor Crohn's disease, inflammatory bowel disease, or ulcerative colitis drink more than 3 alcohol-containing drinks per day drug abuse or addiction head injury heart or circulation problems kidney disease or problems going to the bathroom liver disease lung disease, asthma, or breathing problems an unusual or allergic reaction to acetaminophen, hydrocodone, other opioid analgesics, other medicines, foods, dyes, or preservatives or trying to get breast-feeding What should I watch for while using this medicine? Tell your doctor or health prompt care rn if your pain does not go away, if it gets worse, or if you have new or a different type of pain. You may develop tolerance to the medicine. Tolerance means that you will need a higher dose of the medicine for pain relief. Tolerance is normal and is expected if you take the medicine for a long time. Do not suddenly stop taking your medicine because you may develop a severe reaction. Your body becomes used to the medicine. This does NOT mean you are addicted. Addiction is a behavior related to getting and using a drug for a non-medical reason. If you have pain, you have a medical reason to take pain medicine. Your doctor will tell you how much medicine to take. If your doctor wants you to stop the medicine, the dose will be slowly lowered over time to avoid any side effects. You may get drowsy or dizzy when you first start taking the medicine or change doses. Do not drive, use machinery, or do anything that may be dangerous until you know how the medicine affects you. Stand or sit up slowly. There are different types of narcotic medicines (opiates) for pain. If you take more than one type at the same time, you may have more side effects. Give your health care provider a list of all medicines you use. Your doctor will tell you how much medicine to take. Do not take more medicine than directed. Call emergency for help if you have problems breathing. The medicine will cause constipation. Try to have a bowel movement at least every 2 to 3 days. If you do not have a bowel movement for 3 days, call your doctor or health prompt care rn. Too much acetaminophen can be very dangerous. Do not take Tylenol (acetaminophen) or medicines that contain acetaminophen with this medicine. Many non-prescription medicines contain acetaminophen. Always read the labels carefully. You have been given the following additional information: Dermatitis, Non-Specific Hydroxyzine Pamoate Oral capsule Prednisone Oral tablet Hydrocodone Bitartrate, Acetaminophen Oral tablet (Electronically signed by Corby Santos Dr. 06/23/2016 5:48)
--- NOTE | 2016-06-23 05:49 | ED MED RECONCILIATION SUMMARY ---
Patient: DEDRA BARKER Medication Reconciliation Report [facility] VisitID: [id number] [address] [place] [address] 36y, F Registration Date/Time: 06/21/2016 Weight: 81.6 kg Height/Length: 66 in. BMI: 29.0 ALLERGIES: Erythromycin, Iodine The patient's Home Medications are listed below: CONTINUE TAKING THE FOLLOWING MEDICATIONS: Methadone HCl Oral 125mg, daily, recovering heroin addict The source(s) of the original Home Medication information: Not obtained. The following Medications were given to the patient in the Emergency Department: Prednisone [PO] PO 60 mg, administered: 06/21/2016 8:41:00 AM Hydroxyzine [PO] PO 50 mg, administered: 06/21/2016 8:41:00 AM The following Medications were prescribed to the patient: Atarax 50 mg: take 1 orally every 8 hours as needed for itching. Dispense thirty (30). No refill. Substitution is permissible. -- Corby Santos Dr. Prednisone every day for 5 days. Dispense sufficient quantity. No refills.(60 mg PO) -- Corby Santos Dr. [place] 5 mg / 325 mg tablets: take 1 orally every 6 hours as needed for pain. Dispense ten (10). No refill. Substitution is permissible. -- Corby Santos Dr.
--- NOTE | 2016-06-23 05:49 | ED MAR SUMMARY ---
..... Medication Administration Record [facility] [address] [place] [address] Patient: DEDRA BARKER Visit ID: [id number] 36y, F Weight: 81.6 kg Height/Length: 66 in BMI: 29 ALLERGIES: Erythromycin, Iodine Given 08:06/21/2016 Sherri Owen RThuy Medication Administered: PREDNISONE [PO], Dose: 60 mg Tablets PO. Medication Ordered: Prednisone PO 60 mg (NOW). Given 08:06/21/2016 Sherri Owen, RJaymeNJayme Medication Administered: HYDROXYZINE [PO] (HYDROXYZINE HCL), Dose: 50 mg Tablets PO. Medication Ordered: HydrOXYzine PO 50 mg (NOW).
--- NOTE | 2016-06-23 05:49 | ED MAR SUMMARY ---
..... Medication Administration Record [facility] [address] [place] [address] Patient: DEDRA BARKER Visit ID: [id number] 36y, F Weight: 81.6 kg Height/Length: 66 in BMI: 29 ALLERGIES: Erythromycin, Iodine Given 08:06/21/2016 Sherri Owen RThuy Medication Administered: PREDNISONE [PO], Dose: 60 mg Tablets PO. Medication Ordered: Prednisone PO 60 mg (NOW). Given 08:06/21/2016 Sherri Owen, RJaymeNJayme Medication Administered: HYDROXYZINE [PO] (HYDROXYZINE HCL), Dose: 50 mg Tablets PO. Medication Ordered: HydrOXYzine PO 50 mg (NOW).
--- NOTE | 2016-06-23 05:49 | ED MED RECONCILIATION SUMMARY ---
Patient: DEDRA BARKER Medication Reconciliation Report [facility] VisitID: [id number] [address] [place] [address] 36y, F Registration Date/Time: 06/21/2016 Weight: 81.6 kg Height/Length: 66 in. BMI: 29.0 ALLERGIES: Erythromycin, Iodine The patient's Home Medications are listed below: CONTINUE TAKING THE FOLLOWING MEDICATIONS: Methadone HCl Oral 125mg, daily, recovering heroin addict The source(s) of the original Home Medication information: Not obtained. The following Medications were given to the patient in the Emergency Department: Prednisone [PO] PO 60 mg, administered: 06/21/2016 8:41:00 AM Hydroxyzine [PO] PO 50 mg, administered: 06/21/2016 8:41:00 AM The following Medications were prescribed to the patient: Atarax 50 mg: take 1 orally every 8 hours as needed for itching. Dispense thirty (30). No refill. Substitution is permissible. -- Corby Santos Dr. Prednisone every day for 5 days. Dispense sufficient quantity. No refills.(60 mg PO) -- Corby Santos Dr. [place] 5 mg / 325 mg tablets: take 1 orally every 6 hours as needed for pain. Dispense ten (10). No refill. Substitution is permissible. -- Corby Santos Dr.
== END 2016-06-21 09:11 | disposition home or self-care (01) ==
LOC: ED SRH 08:25
DX: L23.2 Allergic contact dermatitis due to cosmetics (principal); Z79.891 Long term (current) use of opiate analgesic; Z88.1 Allergy status to other antibiotic agents; Z91.041 Radiographic dye allergy status

== ENCOUNTER 2016-06-21 17:15 | Emergency (ER) | payer OTHER ==
--- NOTE | 2016-06-21 18:29 | ED ORDER SUMMARY ---
..... Patient: DEDRA BARKER OrderSheet [facility] VisitID: [id number] [address] [place] [address] 36y, F Registration Date/Time: 06/21/2016 ORDER SHEET Weight: 81.6 kg (stated) Allergies: Erythromycin, Iodine GENERAL ORDERS: MEDICATION ORDERS: IV FLUIDS: Solu-MEDROL IV 125 mg (NOW) (17:26 06/21/2016 EKoroleva P.A.-C) (Ack 17:29 ErinDeElena R.N.) (18:20 DDean R.N.) Benadryl IV 50 mg (NOW) (17:26 06/21/2016 EKoroleva P.A.-C) (Ack 17:29 ErinDeElena R.N.) (18:20 DDean R.N.) Pepcid IV 40 mg/50mL (NOW) (17:27 06/21/2016 EKorolenathan P.A.-C) (Ack 17:29 JDeElena R.N.) (18:21 DDean R.N.) ORDER SHEET NOTES: [Electronically signed by Edgard Baldwin R.N. (18:46 06/21/2016)] [Electronically signed by Radhika Marrero P.A.-C (19:15 06/21/2016)] [Electronically locked/signed by Edgard Baldwin R.N. (18:46 06/21/2016)]
--- NOTE | 2016-06-21 18:29 | ED CLINICAL REPORT ---
Clinical Report - Physicians/Mid Levels [facility] [address] [place] [address] 06/21/2016 17:17 Patient: DEDRA BARKER Time Seen: 17:32 Jun 21 2016. Arrived- By private vehicle. HISTORY OF PRESENT ILLNESS Chief Complaint: ALLERGIC REACTION and SKIN RASH. 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 The patient has had a skin rash and itching. A cause has been identified. (2 days prior to arrival, patient had her hair dyed at a salon, and since then has been having a pruritic sensation or rash of the scalp as well as extending into her neck. Previous ER visit. Hydralazine after her visit.). REVIEW OF SYSTEMS No eye problems, sore throat or urinary frequency. All systems otherwise negative, except as recorded above. SOCIAL HISTORY Never smoker. No alcohol use or drug use. ADDITIONAL NOTES The nursing notes have been reviewed. PHYSICAL EXAM Vital Signs: 06/21/2016 17:20 BP: 145/84. HR: 83. RR: 20. O2 saturation: 97%. Temp: 98.7 F. Pain level now: 6/10. Appearance: Alert. No acute distress. Head and Neck: Normal external inspection. Eyes: Pupils equal, round and reactive to light. ENT: Ears normal. Nose normal. Pharynx normal. CVS: Normal heart rate and rhythm. Heart sounds normal. Respiratory: No respiratory distress. Breath sounds normal. No accessory muscle use. Abdomen: Nontender. No organomegaly. Skin: Small area of erythema to the scalp. No warmth. Skin: The rash is urticarial. Not macular, vesicular or fine. Neuro: Oriented X 3. PROGRESS AND PROCEDURES Course of Care: Patient here in the ER with a rash that has mildly worsened as per nursing staff was on her this morning. Patient with no shortness of breath, lungs clear. Given IV Solu-Medrol in the emergency department, as well as Benadryl and Pepcid. Symptoms improved. No worsening. Patient had a previous prescription for steroids, will continue use of such as previously given from this morning. Stable for discharge. 06/21/2016 18:44 BP: 120/66. HR: 80. RR: 16. O2 saturation: 96%. Temp: 98.6 F. Pain level now: 610. Patient is stable. Symptoms better. Patient/family counseled. CLINICAL IMPRESSION Localized allergic reaction. INSTRUCTIONS (ice packs benadryl as needed). Warnings: Further evaluation is necessary. Follow-up: Follow up with your doctor in three as needed. (Electronically signed by Radhika Marrero P.A.-C 06/21/2016 19:15)
--- NOTE | 2016-06-21 18:29 | ED NURSING NOTES ---
Clinical Report - Nurses [facility] [address] [place] [address] 06/21/2016 17:17 Patient: JANINE BARKER TRIAGE Acuity: LEVEL 3. Chief Complaint: ALLERGIC REACTION and ITCHING and SWELLING . Pt was in [facility] last night with alergic reaction to hair dye. back in now because symptoms not improving- states she does have "labored breathing". --17:29 Maricruz Winn R.N. 17:20 06/21/16. BP: 145/84. HR: 83. RR: 20. O2 saturation: 97%. Temp: 98.7 F. Pain level now: 07/19. --17:29 Maricruz Winn R.N. Weight: 81.6 kg stated. Height/Length: 66 inches Per Patient. BMI: 29. --17:26 Maricruz Winn R.N. Medications Methadone HCl Oral 125mg, daily (recovering heroin addict). --17:23 Maricruz Winn R.N. HydrOXYzine HCl Oral 50 mg, 3x a day, last dose 1630. PredniSONE Oral 20 mg, daily. Vicodin Oral 5 mg, 4x a day as needed, last dose 1530. --17:28 Maricruz Winn R.N. Allergies Erythromycin. Iodine. --17:23 Maricruz Winn R.N. History Arrived by private vehicle. Historian: patient and family. Accompanied by family. The patient has had a skin rash, itching, swelling and difficulty breathing. SOCIAL HX: Never smoker. No alcohol use or drug use. --17:29 Maricruz Winn R.N. PROBLEMS: Contact Dermatitis. Substance Abuse. Leukocytosis. Suicidal Ideation. Narcotic Withdrawal. UTI - Urinary Tract Infection. Contusion. Abscess. Dehydration. Adverse Drug Reaction. Headache. Dizzy, and passed out . Syncope. Dental Pain. Gastroenteritis. Hepatitis. Vomiting. Facial Cellulitis. Dental Abscess. Lifestyle / Substance Problems. URI. Lower Extremity Pain. Crush Injury, Lower Extremity. Staph Infections. Cellulitis. --17:24 Maricruz Winn R.N. ADDITIONAL SURGERIES: Facial abscess surgery. Knee Surgery. --17:24 Maricruz Winn R.N. Interventions ID band on patient. To treatment room. --17:29 Maricruz Winn R.N. PHYSICAL ASSESSMENT 17:20. Ambulatory to room. Patient gowned. GENERAL / NEURO / PSYCH: Alert. Appears in pain and anxious. Oriented X 4. HEENT: Mucous membranes are pink. RESPIRATORY: Mild respiratory distress. CVS: Capillary refill less than 2 seconds. SKIN: Skin is warm and dry. Skin rash present. Urticaria present. Swelling present. Increased warmth present. --17:26 Maricruz Winn R.N. NURSING PROGRESS NOTES 17:25 06/21/2016 Site #1 started via IV in the right antecubital space with an 20g angiocath, with aseptic technique and good blood return; one attempt. Blood drawn: rainbow set. Labeled in the presence of the patient and sent to the lab. Saline lock flushed with 10 mL saline (by Zabrina BALBUENA). --17:25 Maricruz Winn R.N. 17:20. Head of bed elevated. Reassurance given. Patient identifiers checked. Call light placed in reach. Side rails up. Bed placed in lowest position. Patient ready for evaluation- chart flagged. --17:25 Maricruz Winn R.N. 17:32 06/21/2016 Benadryl (DiphenhydrAMINE HCl) IVP 50 mg given over 1 minute(s) via site #1. Sedative warning given to the patient. IV patency established. IV site checked: no pain, redness, or swelling. IV flushed thoroughly pre- and post-medication administration. IVP given by RN. --18:20 Maricruz Winn R.N. 17:33 06/21/2016 SOLU-MEDROL (MethylPREDNISolone Sodium Succ) IVP 125 mg given over 1 minute(s) via site #1. IV patency established. IV site checked: no pain, redness, or swelling. IV flushed thoroughly pre- and post-medication administration. IVP given by RN. --18:20 Maricruz Winn R.N. 17:38 06/21/2016 Started 40 mg of Pepcid IVPB in bag #1 100 mL; at 50 mL/hr over 1 hour(s) via site #1 via IV pump. --18:21 Maricruz Winn R.N. 18:20 06/21/16. BP: 125/70. HR: 80. RR: 20. O2 saturation: 98%. Temp: deferred. Pain level now: 07/19. Additional comments: resting quietly, family at bedside . --18:26 Maricruz Winn R.N. DISPOSITION / DISCHARGE Departure time: 18:46. Condition at departure: stable. The goals identified in the patient's plan of care were met. No learning barriers present. Discharge instructions provided and reviewed with the patient. Patient verbalized understanding. Written instructions provided in Indonesian. ( Janine verbalizes understanding of all d/c instructions including need to f/u with PCP. She has no questions and voices no concerns at this time.). The patient was discharged by the physician email marketing assistant. She was discharged home and accompanied by family. She left the Emergency Department ambulatory and via private vehicle. Family member driving. JESÚS COMA SCORE: [place] Coma Scale: 15- eyes open spontaneously (4); best verbal response- oriented x 4 (5); best motor response- obeys commands (6). --18:46 Edgard Baldwin R.N. 18:44 06/21/16. BP: 120/66 (regular adult cuff) taken on the left arm, via an automated monitor, while sitting. HR: 80 (normal rate). RR: 16 (regular, unlabored and normal). O2 saturation: 96% on room air. Temp: 98.6 F (oral). Pain level now: 07/19. --18:46 Edgard Baldwin R.N. 18:46 06/21/2016 Site #1 removed upon discharge. Catheter intact. Bandaid applied (Bleeding controlled.). --18:46 Edgard Baldwin R.N. Locked/Released at 06/21/2016 18:46 by Edgard Baldwin R.N.
--- NOTE | 2016-06-21 18:29 | ED CLINICAL REPORT ---
Clinical Report - Physicians/Mid Levels [facility] [address] [place] [address] 06/21/2016 17:17 Patient: DEDRA BARKER Time Seen: 17:32 Jun 21 2016. Arrived- By private vehicle. HISTORY OF PRESENT ILLNESS Chief Complaint: ALLERGIC REACTION and SKIN RASH. This started 2 days [employer] and is still present. The patient has had a skin rash and itching. A cause has been identified. (2 days prior to arrival, patient had her hair dyed at a salon, and since then has been having a pruritic sensation or rash of the scalp as well as extending into her neck. Previous ER visit. Hydralazine after her visit.). REVIEW OF SYSTEMS No eye problems, sore throat or urinary frequency. All systems otherwise negative, except as recorded above. SOCIAL HISTORY Never smoker. No alcohol use or drug use. ADDITIONAL NOTES The nursing notes have been reviewed. PHYSICAL EXAM Vital Signs: 06/21/2016 17:20 BP: 145/84. HR: 83. RR: 20. O2 saturation: 97%. Temp: 98.7 F. Pain level now: 6/10. Appearance: Alert. No acute distress. Head and Neck: Normal external inspection. Eyes: Pupils equal, round and reactive to light. ENT: Ears normal. Nose normal. Pharynx normal. CVS: Normal heart rate and rhythm. Heart sounds normal. Respiratory: No respiratory distress. Breath sounds normal. No accessory muscle use. Abdomen: Nontender. No organomegaly. Skin: Small area of erythema to the scalp. No warmth. Skin: The rash is urticarial. Not macular, vesicular or fine. Neuro: Oriented X 3. PROGRESS AND PROCEDURES Course of Care: Patient here in the ER with a rash that has mildly worsened as per nursing staff was on her this morning. Patient with no shortness of breath, lungs clear. Given IV Solu-Medrol in the emergency department, as well as Benadryl and Pepcid. Symptoms improved. No worsening. Patient had a previous prescription for steroids, will continue use of such as previously given from this morning. Stable for discharge. 06/21/2016 18:44 BP: 120/66. HR: 80. RR: 16. O2 saturation: 96%. Temp: 98.6 F. Pain level now: 610. Patient is stable. Symptoms better. Patient/family counseled. CLINICAL IMPRESSION Localized allergic reaction. INSTRUCTIONS (ice packs benadryl as needed). Warnings: Further evaluation is necessary. Follow-up: Follow up with your doctor in three as needed. (Electronically signed by Radhika Marrero P.A.-C 06/21/2016 19:15)
--- NOTE | 2016-06-21 18:29 | ED ORDER SUMMARY ---
..... Patient: DEDRA BARKER OrderSheet [facility] VisitID: [id number] [address] [place] [address] 36y, F Registration Date/Time: 06/21/2016 ORDER SHEET Weight: 81.6 kg (stated) Allergies: Erythromycin, Iodine GENERAL ORDERS: MEDICATION ORDERS: IV FLUIDS: Solu-MEDROL IV 125 mg (NOW) (17:26 06/21/2016 EKoroleva P.A.-C) (Ack 17:29 ErinDeElena R.N.) (18:20 DDean R.N.) Benadryl IV 50 mg (NOW) (17:26 06/21/2016 EKoroleva P.A.-C) (Ack 17:29 ErinDeElena R.N.) (18:20 DDean R.N.) Pepcid IV 40 mg/50mL (NOW) (17:27 06/21/2016 EKorolenathan P.A.-C) (Ack 17:29 JDeElena R.N.) (18:21 DDean R.N.) ORDER SHEET NOTES: [Electronically signed by Edgard Baldwin R.N. (18:46 06/21/2016)] [Electronically signed by Radhika Marrero P.A.-C (19:15 06/21/2016)] [Electronically locked/signed by Edgard Baldwin R.N. (18:46 06/21/2016)]
--- NOTE | 2016-06-21 19:16 | ED MAR SUMMARY ---
..... Medication Administration Record [facility] [address] [place] [address] Patient: DEDRA BARKER Visit ID: [id number] 36y, F Weight: 81.6 kg Height/Length: 66 in BMI: 29 ALLERGIES: Erythromycin, Iodine Given 17:32 06/21/2016 Maricruz Winn R.N. Medication Administered: BENADRYL [IVP] (DIPHENHYDRAMINE HCL), Dose: 50 mg IVP over 1 minute(s), Site: #1 right AC. Medication Ordered: Benadryl IV 50 mg (NOW). Given 17:33 06/21/2016 Maricruz Winn R.N. Medication Administered: SOLU-MEDROL [IVP] (METHYLPREDNISOLONE SODIUM SUCC), Dose: 125 mg IVP over 1 minute(s), Site: #1 right AC. Medication Ordered: Solu-MEDROL IV 125 mg (NOW). Start 17:38 06/21/2016 Maricruz Winn R.N. Medication Administered: PEPCID [IVPB], Dose: 40 mg IVPB over 1 hour(s), Rate: 50 mL/hr, Dispensed: 100 mL bag, Site: #1 right AC. Medication Ordered: Pepcid IV 40 mg/50mL (NOW).
--- NOTE | 2016-06-21 19:16 | ED MED RECONCILIATION SUMMARY ---
Patient: DEDRA BARKER Medication Reconciliation Report [facility] VisitID: [id number] [address] [place] [address] 36y, F Registration Date/Time: 06/21/2016 Weight: 81.6 kg Height/Length: 66 in. BMI: 29.0 ALLERGIES: Erythromycin, Iodine The patient's Home Medications are listed below: THE FOLLOWING MEDICATIONS NEED TO BE RECONCILED: HydrOXYzine HCl Oral 50 mg, 3x a day, last dose: 1630 Methadone HCl Oral 125mg, daily, recovering heroin addict PredniSONE Oral 20 mg, daily Vicodin Oral 5 mg, 4x a day, last dose: 1530 The source(s) of the original Home Medication information: Not obtained. The following Medications were given to the patient in the Emergency Department: Benadryl [IVP] IVP 50 mg, administered: 06/21/2016 5:32:00 PM SOLU-MEDROL [IVP] IVP 125 mg, administered: 06/21/2016 5:33:00 PM Pepcid [IVPB] IVPB bolus 0, then 40 mg 50 mL/hr, administered: 06/21/2016 5:38:00 PM The following Medications were prescribed to the patient: None.
--- NOTE | 2016-06-21 19:16 | ED MAR SUMMARY ---
..... Medication Administration Record Located Within [facility] [address] [place] [address] Patient: DEDRA BARKER Visit ID: [id number] 36y, F Weight: 81.6 kg Height/Length: 66 in BMI: 29 ALLERGIES: Erythromycin, Iodine Given 17:32 06/21/2016 Maricruz Winn R.N. Medication Administered: BENADRYL [IVP] (DIPHENHYDRAMINE HCL), Dose: 50 mg IVP over 1 minute(s), Site: #1 right AC. Medication Ordered: Benadryl IV 50 mg (NOW). Given 17:33 06/21/2016 Maricruz Winn R.N. Medication Administered: SOLU-MEDROL [IVP] (METHYLPREDNISOLONE SODIUM SUCC), Dose: 125 mg IVP over 1 minute(s), Site: #1 right AC. Medication Ordered: Solu-MEDROL IV 125 mg (NOW). Start 17:38 06/21/2016 Maricruz Winn R.N. Medication Administered: PEPCID [IVPB], Dose: 40 mg IVPB over 1 hour(s), Rate: 50 mL/hr, Dispensed: 100 mL bag, Site: #1 right AC. Medication Ordered: Pepcid IV 40 mg/50mL (NOW).
--- NOTE | 2016-06-21 19:16 | ED MED RECONCILIATION SUMMARY ---
Patient: DEDRA BARKER Medication Reconciliation Report [facility] VisitID: [id number] [address] [place] [address] 36y, F Registration Date/Time: 06/21/2016 Weight: 81.6 kg Height/Length: 66 in. BMI: 29.0 ALLERGIES: Erythromycin, Iodine The patient's Home Medications are listed below: THE FOLLOWING MEDICATIONS NEED TO BE RECONCILED: HydrOXYzine HCl Oral 50 mg, 3x a day, last dose: 1630 Methadone HCl Oral 125mg, daily, recovering heroin addict PredniSONE Oral 20 mg, daily Vicodin Oral 5 mg, 4x a day, last dose: 1530 The source(s) of the original Home Medication information: Not obtained. The following Medications were given to the patient in the Emergency Department: Benadryl [IVP] IVP 50 mg, administered: 06/21/2016 5:32:00 PM SOLU-MEDROL [IVP] IVP 125 mg, administered: 06/21/2016 5:33:00 PM Pepcid [IVPB] IVPB bolus 0, then 40 mg 50 mL/hr, administered: 06/21/2016 5:38:00 PM The following Medications were prescribed to the patient: None.
--- NOTE | 2016-06-21 19:16 | ED DISCHARGE INSTRUCTIONS ---
Patient: DEDRA BARKER General Instructions [facility] VisitID: [id number] [address] [place] [address] 36y, F Registration Date/Time: 06/21/2016 Localized allergic reaction. INSTRUCTIONS (ice packs benadryl as needed). Warnings: Further evaluation is necessary. Follow-up: Follow up with your doctor in three as needed. ADDITIONAL INFORMATION Allergic Reaction,Generalized [Other] You are having an allergic reaction. This may cause an itchy rash, dizziness, fainting, trouble breathing or swallowing, and swelling of the face or other parts of the body. This can be caused by exposure to something in your surroundings that you have become sensitive to. This could be due to medicine or food. This could also be due to something you put on your skin or in your hair or something in the air. Often it is not possible to find out exactly what has caused your reaction. The goal of today's treatment is to relieve symptoms. The rash will usually fade over several days, but can sometimes last up to two weeks. Home Care: 1) If you know what you are allergic to, avoid it because future reactions could be worse than this one. 2) Avoid tight clothing and anything that heats up your skin (hot showers/baths, direct sunlight) since heat will make itching worse. 3) An ice pack will relieve local areas of intense itching and redness. Lanacaine cream or Solarcaine spray (or other product containing "benzocaine", available without a prescription) will reduce the itching. 4) Oral Benadryl (diphenhydramine) is an antihistamine available at drug and grocery stores. Unless a prescription antihistamine was given, Benadryl may be used to reduce itching if large areas of the skin are involved. Use lower doses during the daytime and higher doses at bedtime since the drug may make you sleepy. [NOTE: Do not use Benadryl if you have glaucoma or if you are a man with trouble urinating due to an enlarged prostate.] Claritin (loratidine) is an antihistamine that causes less drowsiness and is a good alternative for daytime use. Follow Up Follow Up with your doctor or this facility in two days if your symptoms do not continue to improve. If you had a severe reaction today, or if you have had several mild-moderate allergic reactions in the past, ask your doctor about allergy testing to find out what you are allergic to. If your reaction included dizziness, fainting or trouble breathing or swallowing, ask your doctor about carrying an Allergy Kit (injectable epinephrine) for home use. Get Prompt Medical Attention if any of the following occur: -- Trouble breathing or swallowing -- New or worse swelling in the face, eyelids, lips, mouth, tongue or throat -- Dizziness, weakness or fainting You have been given the following additional information: Allergic Reaction, Other (General) (Electronically signed by Radhika Marrero P.A.-C 06/21/2016 19:15)
== END 2016-06-21 18:45 | disposition home or self-care (01) ==
LOC: ED SRH 17:15
DX: T78.49XA Other allergy, initial encounter (principal); R21 Rash and other nonspecific skin eruption; X58.XXXA Exposure to other specified factors, initial encounter